=== PATIENT | female | born 1975 | race Caucasian/White ===

== ENCOUNTER 2018-03-09 14:51 | Emergency (ER) | payer SELFPAY ==
[~2018-03-09 14:51] MED LIST: ISOVUE-370 76%-LOCM 1 ML ONE
[2018-03-09 16:27] LABS: #Basophils 0.1 thou/uL (0.0-0.2); #Eosinphils 0.1 thou/uL (0.0-0.7); #Lymphocytes 3.1 thou/uL (1.20-3.40); #Monocytes 0.8 thou/uL (0.11-0.59); #Neutrophils 10.5 thou/uL (1.40-6.50); %Basophils 0.8 % (0.0-1.0); %Eosinophils 0.7 % (0.0-10.0); %Lymphocytes 21.5 % (21.0-51.0); %Monocytes 5.3 % (0.0-10.0); %Neutrophils 71.7 % (42.0-75.0); Hemoglobin 15.4 g/dL (12.0-16.0); Mean Corpuscular HGB CONC 32.7 g/dL (32.0-36.0); Mean Corpuscular Hemoglobin 29.7 pg (27.0-31.0); Mean Corpuscular Volume 91.1 fL (78.0-98.0); Mean Platelet Volume 7.5 fL (7.4-10.4); Platelet Count 385 thou/uL (130-400); RBC Distribution Width 12.8 % (11.5-14.5); Red Blood Cell (RBC) Count 5.19 mill/uL (4.20-5.40); White Blood Cell (WBC) Count 14.6 thou/uL (4.8-10.8)
[2018-03-09 16:50] LABS: ALT (SGPT) 20 U/L (8-55); AST (SGOT) 21 U/L (5-34); Albumin 4.2 g/dL (3.5-5.0); Alkaline Phosphatase 71 U/L (40-150); Anion Gap 12 mmol/L (10-20); BUN (Urea Nitrogen) 9 mg/dL (7.0-18.7); Bilirubin, Total 0.6 mg/dL (0.2-1.2); CK (CPK) 43 U/L (29-168); Calc. Creatinine Clearance 0 mL/min (70-130); Calcium 9.8 mg/dL (7.8-10.44); Carbon Dioxide 22 mmol/L (22-29); Chloride 107 mmol/L (98-107); Estimated GFR-MDRD 86; Globulin 3.7 g/dL (2.4-3.5); Glucose 87 mg/dL (70-105); Lipase 35 U/L (8-78); Potassium 4.3 mmol/L (3.5-5.1); Protein, Total 7.9 g/dL (6.0-8.3); Sodium 137 mmol/L (136-145)
[2018-03-09 16:53] LABS: CKMB 0.6 ng/mL (0-6.6); Troponin I Less than 0.010 ng/mL (< 0.028)
[2018-03-09] MEDS ORDERED: Acetaminophen 500 MG TAB ONE (17:52)
--- NOTE | 2018-03-09 19:26 | CT ---
CTA CHEST WITH 3D VOLUME RENDERING WITH CONTRAST 03/09/18 COMPARISON: 01/05/17. INDICATION: Chest pain. FINDINGS: There is decreased contrast bolus density of the pulmonary arteries which markedly limits the evaluat ion. There is no definite large, central embolus at the pulmonary trunk or proximal main pulmonary ar teries; however, the segmental and subsegmental branches are not evaluated for detection of PE as the y are diffusely low contrast density throughout. This could obscure emboli in these regions. There is no lobar consolidation, effusion or pneumothorax. Granulomatous calcification of the chest i s present. There is evidence of hepatic steatosis. Thoracic aorta is nonaneurysmal. 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 IMPRESSION: 1. Limited evaluation for pulmonary embolus as above. 2. No lobar consolidation or effusion. Findings discussed with ER physician, Naveed Maynard at time of dictation, 1748 hours, 03/09/18. POS: [facility]
== END 2018-03-09 19:06 | disposition home or self-care (01) ==
LOC: ERS 14:51
DX: F41.9 Anxiety disorder, unspecified (principal); R07.2 Precordial pain; R51 Headache; G43.909 Migraine, unspecified, not intractable, without status migrainosus; E66.9 Obesity, unspecified; F32.9 Major depressive disorder, single episode, unspecified
CPT/HCPCS: 36415; 71275; 80053; 82553; 83690; 84484; 85025; 85379

== ENCOUNTER 2025-05-08 16:05 | Outpatient (CLI) | payer OTHER | END 2025-05-08 16:06 | disposition home or self-care (01) | LOC: CT 16:05 | PROVIDERS: ATTEND Physician Assistant Surgical | DX: M25.551 Pain in right hip (principal); G89.29 Other chronic pain; M21.951 Unspecified acquired deformity of right thigh; Z87.81 Personal history of (healed) traumatic fracture; Z98.890 Other specified postprocedural states ==